=== PATIENT | male | born 1945 | race Caucasian/White ===

== ENCOUNTER 2021-10-25 14:10 | Inpatient (IN) | payer OTHER ==
[~2021-10-25] VITALS: Ht 188 cm; Wt 99.3 kg
[2021-10-25] MEDS ORDERED: SODIUM CHLORIDE 0.9% 1,000 ML IV ONE ×2 (14:30→14:45)
[2021-10-25] MEDS ORDERED: AZITHROMYCIN 500MG/ 250ML 250 ML IV ONE (14:45)
[2021-10-25] MEDS ORDERED: cefTRIAXone 1GM/50ML D5W 50 ML IV ONE (14:45)
[2021-10-25 15:04] LABS: Basophils # (auto) 0 10 ^3/uL (0-0.2); Eosinophils # (auto) 0 10 ^3/uL (0-0.8); Hematocrit 32.9 % (41.0-53.0); Hemoglobin 10.8 g/dL (13.5-17.5); Lymphocytes # (auto) 0.3 10 ^3/uL (0.4-5.4); Lymphocytes % (auto) 2.4 % (10.0-50.0); Mean Corpuscular Hemoglobin 30.5 pg (28.0-32.0); Mean Corpuscular Hgb Conc. 32.9 g/dL (32.0-36.0); Mean Corpuscular Volume 92.7 fL (80.0-100.0); Monocytes # (auto) 0.3 10 ^3/uL (0-1.3); Monocytes % (auto) 2.1 % (0.0-12.0); Neutrophils # (auto) 12.9 10 ^3/uL (1.6-8.6); Neutrophils % (auto) 95.5 % (37.0-80.0); Red Blood Cells 3.55 10^6/uL (4.5-5.90); Red Cell Distribution Width 15.9 % (11.8-14.3); White Blood Cell 13.5 10^3/uL (4.4-10.8)
[2021-10-25 15:22] LABS: Alanine Aminotransferase 34 U/L (16-61); Albumin 2.2 g/dL (3.4-5.0); Anion Gap 17 (5-15); Aspartate Aminotransferase 74 U/L (15-37); BUN/Creatinine Ratio 30.5; Blood Alcohol < 3.0 mg/dL (0-5); Calcium 8.2 mg/dL (8.5-10.1); Carbon Dioxide 16 mmol/L (21-32); Chloride 105 mmol/L (98-107); GFR African American 20 mL/min; GFR Non-African American 17 mL/min; Glucose 133 mg/dL (74-106); Magnesium 2.3 mg/dL (1.6-2.6); Potassium 3.4 mmol/L (3.5-5.1); Sodium 138 mmol/L (136-145)
[2021-10-25 15:24] LABS: Lactic Acid w/Reflex 2.3 mmol/L (0.4-2.0)
[2021-10-25 15:29] LABS: INR 1.1 (0.9-1.15)
[2021-10-25 15:30] LABS: Partial Thromboplastin Time 32.4 sec (24.6-33.4)
[2021-10-25 15:49] LABS: Alkaline Phosphatase 407 U/L (45-117); Bilirubin, Total 2.6 mg/dL (0.2-1.0); Total Protein 6.1 g/dL (6.4-8.2)
[2021-10-25 15:52] LABS: Blood Urea Nitrogen 115 mg/dL (7-18)
[2021-10-25 16:00] LABS: Uric Acid 9.6 mg/dL (3.5-7.2)
[2021-10-25] MEDS ORDERED: DEXTROSE (50%) 50ML SYRG IV PRN (21:00)
[2021-10-25] MEDS ORDERED: NITROGLYCERIN 0.4 MG SL TAB SL PRN (21:00)
[2021-10-25] MEDS ORDERED: MORPHINE SULFATE INJ 2 MG/ml SYRG IV PRN ×2 (21:00)
[2021-10-25] MEDS ORDERED: ONDANSETRON HCL 4 MG/2 ML VIAL IV PRN (21:00)
[2021-10-25] MEDS ORDERED: HEPARIN DRIP/D5W 100UNITS/ML 250 ML IV SCH (21:15)
[2021-10-25] MEDS ORDERED: HEPARIN SODIUM (PORCINE) 5000 UNITS/ML 1ML VIAL IV ONE (21:15)
[2021-10-25] MEDS: ACCU-CHEK COMFORT CURVE STRIP VI SCH (22:00)
[2021-10-25] MEDS: InsuLIN REG 1unit/0.01ml Soln (100units/ml) SC SCH (22:00)
[2021-10-25] MEDS: SODIUM CHLORIDE 0.9% 1,000 ML IV SCH (22:30)
[2021-10-25 23:04] VITALS: BP 117/71
[2021-10-25 23:10] LABS: Alcohol, Urine < 3.0 mg/dL (0-10); Amphetamine Screen, Urine NEGATIVE (NEGATIVE); Barbiturate Scree,Urine NEGATIVE (NEGATIVE); Benzodiazephine Screen, Urine NEGATIVE (NEGATIVE); Cannabinoid Screen, Urine POSITIVE (NEGATIVE); Cocaine Screen, Urine NEGATIVE (NEGATIVE); Phencyclidine Screen, Urine NEGATIVE (NEGATIVE)
[2021-10-25 23:12] LABS: Urine Amorphous Crystal FEW /hpf (None Seen); Urine Bacteria FEW /hpf (None Seen); Urine Blood 3+ /uL (Negative); Urine Hyaline Cast FEW /lpf (0 - 2); Urine Mucus FEW (None Seen); Urine Specific Gravity 1.017 (1.001-1.035); Urine WBC 40 /hpf (0 - 3)
[2021-10-25 23:17] LABS: Opiate Scree,Urine POSITIVE (NEGATIVE)
[2021-10-25] MEDS: HEPARIN DRIP/D5W 100UNITS/ML 250 ML IV SCH (23:50)
[2021-10-25 23:53] LABS: Albumin 2.2 g/dL (3.4-5.0); Calcium 8.2 mg/dL (8.5-10.1); Potassium 3.7 mmol/L (3.5-5.1)
[2021-10-25 23:56] LABS: BUN/Creatinine Ratio 32.3; Bilirubin, Total 2.4 mg/dL (0.2-1.0); Total Protein 6.4 g/dL (6.4-8.2)
[2021-10-26] MEDS ORDERED: AMLO-489 PO (04:07)
[2021-10-26] MEDS ORDERED: ALLO300T2 PO (04:07)
[2021-10-26] MEDS ORDERED: ATEN100T PO (04:07)
[2021-10-26] MEDS ORDERED: DOXA4TAB6 PO (04:07)
[2021-10-26] MEDS ORDERED: FIN5T PO (04:07)
[2021-10-26] MEDS ORDERED: CLON0.3T PO (04:07)
[2021-10-26] MEDS: SODIUM CHLORIDE 0.9% 1,000 ML IV SCH ×3 (04:25→18:30)
[2021-10-26 05:00] VITALS: BP 96/52
[2021-10-26 06:51] LABS: Basophils # (auto) 0 10 ^3/uL (0-0.2); Basophils % (auto) 0.2 % (0.0-2.0); Eosinophils # (auto) 0 10 ^3/uL (0-0.8); Hematocrit 31.1 % (41.0-53.0); Hemoglobin 10.4 g/dL (13.5-17.5); Lymphocytes # (auto) 0.4 10 ^3/uL (0.4-5.4); Lymphocytes % (auto) 3.4 % (10.0-50.0); Mean Corpuscular Hemoglobin 30.4 pg (28.0-32.0); Mean Corpuscular Hgb Conc. 33.4 g/dL (32.0-36.0); Mean Corpuscular Volume 91.2 fL (80.0-100.0); Monocytes # (auto) 0.3 10 ^3/uL (0-1.3); Monocytes % (auto) 2.5 % (0.0-12.0); Neutrophils % (auto) 93.9 % (37.0-80.0); Red Blood Cells 3.41 10^6/uL (4.5-5.90); White Blood Cell 12.8 10^3/uL (4.4-10.8)
[2021-10-26] MEDS: InsuLIN REG 1unit/0.01ml Soln (100units/ml) SC SCH ×4 (06:51→22:00)
[2021-10-26 07:03] LABS: INR 1.08 (0.9-1.15); Partial Thromboplastin Time 40.8 sec (24.6-33.4)
[2021-10-26] MEDS: ACCU-CHEK COMFORT CURVE STRIP VI SCH ×4 (07:03→21:59)
[2021-10-26 07:08] LABS: Potassium 3.1 mmol/L (3.5-5.1)
[2021-10-26 07:19] LABS: Albumin 2.1 g/dL (3.4-5.0); BUN/Creatinine Ratio 42.6; Bilirubin, Total 1.3 mg/dL (0.2-1.0); Calcium 8.2 mg/dL (8.5-10.1); Total Protein 5.9 g/dL (6.4-8.2)
[2021-10-26] MEDS: PIPERACILLIN-TAZOB 2.25GM 50 ML IV SCH ×3 (07:34→21:43)
[2021-10-26] MEDS ORDERED: SODIUM CHLORIDE 0.9% 1,000 ML IV ONE (08:30)
[2021-10-26 09:00] VITALS: BP 119/68
[2021-10-26] MEDS ORDERED: cefTRIAXone 1GM/50ML D5W 50 ML IV SCH (09:00)
[2021-10-26] MEDS ORDERED: CEPH-322 PO (10:10)
[2021-10-26] MEDS ORDERED: POTASSIUM CHL 20 Meq TABLET PO ONE (11:30)
[2021-10-26] MEDS ORDERED: NITROGLYCERIN 0.4 MG SL TAB SL PRN (11:45)
[2021-10-26] MEDS ORDERED: MORPHINE SULFATE INJ 2 MG/ml SYRG IV PRN (11:45)
[2021-10-26 11:57] LABS: Basophils # (auto) 0.1 10 ^3/uL (0-0.2); Basophils % (auto) 0.4 % (0.0-2.0); Eosinophils # (auto) 0.1 10 ^3/uL (0-0.8); Eosinophils % (auto) 0.5 % (0.0-7.0); Hematocrit 31.6 % (41.0-53.0); Hemoglobin 10.4 g/dL (13.5-17.5); Lymphocytes # (auto) 0.4 10 ^3/uL (0.4-5.4); Mean Corpuscular Hgb Conc. 32.8 g/dL (32.0-36.0); Mean Corpuscular Volume 91.5 fL (80.0-100.0); Monocytes # (auto) 0.5 10 ^3/uL (0-1.3); Monocytes % (auto) 3.7 % (0.0-12.0); Neutrophils # (auto) 13.1 10 ^3/uL (1.6-8.6); Neutrophils % (auto) 92.4 % (37.0-80.0); Red Blood Cells 3.45 10^6/uL (4.5-5.90); Red Cell Distribution Width 15.8 % (11.8-14.3); White Blood Cell 14.2 10^3/uL (4.4-10.8)
[2021-10-26 13:00] VITALS: BP 145/87
[2021-10-26 13:37] LABS: INR 1.1 (0.9-1.15); Partial Thromboplastin Time 47.3 sec (24.6-33.4)
[2021-10-26] MEDS: HEPARIN DRIP/D5W 100UNITS/ML 250 ML IV SCH ×2 (14:15→21:57)
[2021-10-26 17:00] VITALS: BP 133/76
[2021-10-26] MEDS: HYDROcodone-ACET 10/325MG TAB PO PRN (17:05)
[2021-10-26 18:38] LABS: Hematocrit 31.1 % (41.0-53.0); Hemoglobin 10.2 g/dL (13.5-17.5); Mean Corpuscular Hemoglobin 30.3 pg (28.0-32.0); Mean Corpuscular Hgb Conc. 32.8 g/dL (32.0-36.0); Mean Corpuscular Volume 92.3 fL (80.0-100.0); Red Blood Cells 3.36 10^6/uL (4.5-5.90); Red Cell Distribution Width 15.5 % (11.8-14.3); White Blood Cell 13.6 10^3/uL (4.4-10.8)
[2021-10-26 18:59] LABS: Basophils % (manual) 0 (0.0-2.0); Blast Cells 0; Eosinophils % (manual) 0 (0-7); Myelocytes % 0; Promyelocytes % 0; Reactive Lymphocytes 0
[2021-10-26 19:17] LABS: Band Neutrophils % (manual) 4; Lymphocytes % (manual) 3 (10.0-50.0); Metamyelocytes % 1; Monocytes % (manual) 2 (0-12)
[2021-10-26 20:00] VITALS: BP 137/74
[2021-10-26 20:43] LABS: INR 1.09 (0.9-1.15); Partial Thromboplastin Time 43.9 sec (24.6-33.4)
[2021-10-26] MEDS ORDERED: DOXAZOSIN MESYL 2 MG TAB PO SCH (22:00)
[2021-10-26 22:10] VITALS: BP 137/74
[2021-10-27 01:32] LABS: Basophils # (auto) 0 10 ^3/uL (0-0.2); Basophils % (auto) 0.2 % (0.0-2.0); Eosinophils # (auto) 0 10 ^3/uL (0-0.8); Eosinophils % (auto) 0.1 % (0.0-7.0); Lymphocytes # (auto) 0.5 10 ^3/uL (0.4-5.4); Lymphocytes % (auto) 3.6 % (10.0-50.0); Mean Corpuscular Hemoglobin 31.5 pg (28.0-32.0); Mean Corpuscular Hgb Conc. 34.3 g/dL (32.0-36.0); Mean Corpuscular Volume 91.7 fL (80.0-100.0); Monocytes # (auto) 0.3 10 ^3/uL (0-1.3); Monocytes % (auto) 2.5 % (0.0-12.0); Neutrophils # (auto) 11.9 10 ^3/uL (1.6-8.6); Neutrophils % (auto) 93.6 % (37.0-80.0); Red Blood Cells 3.16 10^6/uL (4.5-5.90); Red Cell Distribution Width 15.9 % (11.8-14.3); White Blood Cell 12.7 10^3/uL (4.4-10.8)
[2021-10-27] MEDS: HYDROcodone-ACET 10/325MG TAB PO PRN ×4 (02:31→19:47)
[2021-10-27] MEDS: SODIUM CHLORIDE 0.9% 1,000 ML IV SCH ×4 (03:29→17:22)
[2021-10-27 04:10] LABS: INR 1.1 (0.9-1.15); Partial Thromboplastin Time 59.1 sec (24.6-33.4)
[2021-10-27 04:49] VITALS: BP 134/82
[2021-10-27] MEDS: PIPERACILLIN-TAZOB 2.25GM 50 ML IV SCH ×2 (06:15→12:44)
[2021-10-27] MEDS: ACCU-CHEK COMFORT CURVE STRIP VI SCH ×3 (06:15→17:21)
[2021-10-27] MEDS: InsuLIN REG 1unit/0.01ml Soln (100units/ml) SC SCH ×3 (06:15→17:00)
[2021-10-27 07:52] LABS: Basophils # (auto) 0 10 ^3/uL (0-0.2); Basophils % (auto) 0.1 % (0.0-2.0); Eosinophils # (auto) 0 10 ^3/uL (0-0.8); Hematocrit 29.5 % (41.0-53.0); Hemoglobin 9.9 g/dL (13.5-17.5); Lymphocytes # (auto) 0.4 10 ^3/uL (0.4-5.4); Lymphocytes % (auto) 3.7 % (10.0-50.0); Mean Corpuscular Hemoglobin 30.8 pg (28.0-32.0); Mean Corpuscular Hgb Conc. 33.5 g/dL (32.0-36.0); Mean Corpuscular Volume 91.9 fL (80.0-100.0); Monocytes # (auto) 0.3 10 ^3/uL (0-1.3); Neutrophils # (auto) 10.2 10 ^3/uL (1.6-8.6); Neutrophils % (auto) 93.2 % (37.0-80.0); Nucleated Red Blood Cells % 0.1 %; Red Blood Cells 3.21 10^6/uL (4.5-5.90); Red Cell Distribution Width 15.7 % (11.8-14.3)
[2021-10-27] MEDS ORDERED: APIX5TAB PO (07:54)
[2021-10-27 08:09] LABS: Potassium 3.3 mmol/L (3.5-5.1)
[2021-10-27 08:18] LABS: BUN/Creatinine Ratio 44.5; Calcium 7.8 mg/dL (8.5-10.1)
[2021-10-27 09:00] VITALS: BP 110/62
[2021-10-27 09:17] VITALS: BP 137/74
[2021-10-27 10:14] LABS: INR 1.1 (0.9-1.15); Partial Thromboplastin Time 37.3 sec (24.6-33.4)
[2021-10-27 11:58] LABS: Basophils # (auto) 0 10 ^3/uL (0-0.2); Basophils % (auto) 0.1 % (0.0-2.0); Eosinophils # (auto) 0 10 ^3/uL (0-0.8); Eosinophils % (auto) 0.1 % (0.0-7.0); Hematocrit 27.7 % (41.0-53.0); Hemoglobin 9.3 g/dL (13.5-17.5); Lymphocytes # (auto) 0.4 10 ^3/uL (0.4-5.4); Lymphocytes % (auto) 3.5 % (10.0-50.0); Mean Corpuscular Hgb Conc. 33.7 g/dL (32.0-36.0); Monocytes # (auto) 0.3 10 ^3/uL (0-1.3); Neutrophils # (auto) 9.8 10 ^3/uL (1.6-8.6); Neutrophils % (auto) 93.3 % (37.0-80.0); Red Blood Cells 3.01 10^6/uL (4.5-5.90); Red Cell Distribution Width 15.7 % (11.8-14.3); White Blood Cell 10.5 10^3/uL (4.4-10.8)
[2021-10-27 13:00] VITALS: BP 127/81
[2021-10-27] MEDS ORDERED: APIXABAN 5 MG TAB PO SCH (13:00)
[2021-10-27 17:00] VITALS: BP 130/83
[2021-10-27] MEDS ORDERED: PIPERACILLIN-TAZOB 3.375GM 100 ML IV SCH (22:00)
== END 2021-10-27 21:23 | DRG 308 ==
LOC: EDBD 14:10 → ER 14:10 → TELE 21:05 → TELE-CENTR 10-26 00:21 → OBSVTOIN 10-26 11:41
PROVIDERS: ADMIT Hospitalist; ATTEND Internal Medicine
DX: I48.91 Unspecified atrial fibrillation (principal); N17.0 Acute kidney failure with tubular necrosis; N39.0 Urinary tract infection, site not specified; E11.22 Type 2 diabetes mellitus with diabetic chronic kidney disease; E78.5 Hyperlipidemia, unspecified; E86.0 Dehydration; E87.6 Hypokalemia; I12.9 Hypertensive chronic kidney disease with stage 1 through stage 4 chronic kidney disease, or unspecified chronic kidney disease; M10.9 Gout, unspecified; N18.9 Chronic kidney disease, unspecified; Z20.822 Contact with and (suspected) exposure to COVID-19
CPT/HCPCS: 36415; 70450; 71045; 76775; 80048; 80053; 80307; 80320; 81001; 82962; 83605; 83735; 84484; 84550; 85007; 85025; 85027; 85610; 85730; 87040; 87086; 93005; 93306; 96365; 96368; 97163; 99291; G0378; J0696; J1815; J2543